=== PATIENT | female | born 2000 | race Caucasian/White ===

== ENCOUNTER 2020-06-23 03:42 | Emergency (ER) | payer OTHER ==
[2020-06-23 05:09] LABS: HEMOGLOBIN 14.2 gm/dl (12.3-15.3); RED BLOOD COUNT 4.56 M/UL (4.00-5.10); WHITE BLOOD COUNT 8.2 K/UL (4.5-11.0)
[2020-06-23 05:33] LABS: BUN/CREATININE RATIO 9 (0-10)
[2020-06-23] MEDS ORDERED: IBUPROFEN800 MG PO (05:54)
[2020-06-23] MEDS ORDERED: ZOFRAN 4 MG TAB4 MG PO (05:54)
[2020-06-23] MEDS ORDERED: MACRODANTIN100 MG PO (05:54)
== END 2020-06-23 06:07 | disposition home or self-care (01) ==
LOC: ER1 03:42
PROVIDERS: Emergency Medicine
DX: N39.0 Urinary tract infection, site not specified (principal); R19.7 Diarrhea, unspecified
CPT/HCPCS: 71045; 80053; 81001; 84703; 85025; 99285